=== PATIENT | female | born 2000 | race Caucasian/White ===

== ENCOUNTER 2019-11-08 12:54 | Emergency (ER) | payer OTHER, SELFPAY ==
[2019-11-08 13:04] VITALS: BP 140/79; PULSE 72; RESP 18; TEMP 36.6; O2SAT 100
--- NOTE | 2019-11-08 14:15 | ED.ALLEREA ---
HPI - Allergic Reaction General Chief complaint: Allergic Reaction Stated complaint: allergic reaction Time Seen by Provider: 11/08/19 13:05 Source: patient Mode of arrival: ambulatory Limitations: no limitations History of Present Illness HPI narrative: Patient is a 19-year-old female who presents to emergency department for evaluation of facial rash patient is unsure as to the etiology denies similar occurrence in the past denies any new exposures or contacts took Benadryl with minimal improvement notes itching of the face where the rash is located also noting some itching of the torso. Related Data Allergies Allergy/AdvReac Type Severity Reaction Status Date / Time No Known Allergies Allergy Verified 11/08/19 13:16 Review of Systems Review of Systems: All systems reviewed & are unremarkable except as noted in HPI and below PMFSH Social History Social History Gender identity (if verbalized by the patient): Female Exam Narrative: Exam Narrative: GENERAL: Well-appearing, well-nourished, and in no acute distress. HEAD: Normocephalic, atraumatic. EYES: PERRLA and EOMI. ENT: Nares clear, no rhinorrhea or epistaxis. Mucous membranes moist. Oropharynx without tonsillar hypertrophy exudate or other lesions. no angioedema in the oropharynx NECK: Supple. No adenopathy or masses. No stridor CHEST: Clear to auscultation. No respiratory distress. No wheezes rales or rhonchi HEART: Regular rate and rhythm. No murmur heard. EXTREMITIES: Normal range of motion. No edema. SKIN: Warm, dry, facial rash with splotchy urticaria no other angioedema or urticaria noted NEURO: No focal deficits. Alert and oriented x3. PSYCH: Normal mood and affect. Course Course Emergency Course: Patient in the room aware of case findings treatment plan and diagnosis agreeing to follow-up as directed or to return if symptoms worsen or concerns Vital Signs Vital signs: Vital Signs Temperature 97.8 F 11/08/19 13:04 Pulse Rate 72 11/08/19 13:04 Respiratory Rate 18 11/08/19 13:04 Blood Pressure 140/79 11/08/19 13:04 Pulse Oximetry 100 11/08/19 13:04 Temperature 97.8 F 11/08/19 13:04 Pulse Rate 72 11/08/19 13:04 Respiratory Rate 18 11/08/19 13:04 Blood Pressure 140/79 11/08/19 13:04 Pulse Oximetry 100 11/08/19 13:04 MDM - Allergic Reaction MDM Narrative Medical decision making narrative: Patient in the room with allergic reaction may be due to the new mask that the patient has been wearing is been advised to remove the mass will be treated for allergic reaction and referred to primary care and given reasons to return Discharge Plan Discharge Clinical Impression: Urticaria Patient Disposition: Home, Self-Care Condition: Stable Instructions: Antibiotic Form, Urticaria (ED) Additional Instructions: Follow-up with primary care in the next 3 to 5 days to set up for reevaluation. go to ER for, nausea/vomiting, fever/chills, weakness, chest pain, shortness of breath, numbness/tingling, slurred speech, change in mental status, unable to swallow or open the mouth, tongue swelling etc. or any other concerns. Avoid heat Take any prescribed medications as directed. Prescriptions: New famotidine [Pepcid] 20 mg tablet 20 mg PO BID Qty: 30 RF: 0 loratadine [Claritin] 10 mg tablet 10 mg PO DAILY PRN (Reason: allergy symptoms) Qty: 14 RF: 0 Follow-up/Referrals: Sean Tang MD [Physician] - PHYSICIAN,TELLER COORDINATOR [Primary Care Provider] -
[2019-11-08] MEDS: FAMOTIDINE 20 MG TABLET PO (14:24)
[2019-11-08] MEDS: predniSONE 20 MG TABLET 60 MG PO (14:24)
== END 2019-11-08 14:32 | disposition home or self-care (01) ==
PROVIDERS: Emergency Provider Emergency Medicine
DX: L50.9 Urticaria, unspecified (principal)
CPT/HCPCS: 99283; A9270; J7512

== ENCOUNTER 2020-03-07 09:49 | Emergency (ER) | payer OTHER, SELFPAY ==
[2020-03-07 10:09] VITALS: BP 131/73; PULSE 80; RESP 18; TEMP 36.3; O2SAT 98
--- NOTE | 2020-03-07 12:30 | ED.GENADULT ---
HPI - General Adult General Chief complaint: Unspecified Stated complaint: pill stuck in throat Time Seen by Provider: 03/07/20 11:17 Source: patient Mode of arrival: ambulatory Limitations: no limitations History of Present Illness HPI narrative: Patient is a 19-year-old female who swallowed a vitamin C pill today and felt as though her stuck in her throat patient notes since having done this this morning her symptoms improved considerably and she only has minimal discomfort at this time notes that she may have been anxious at the time that the pill became stuck patient otherwise in the room in no distress resting comfortably patient denies URI symptoms or other complaints and presents in no distress Related Data Home Medications Medication Instructions Recorded Confirmed apple cider vinegar mg PO 03/07/20 ascorbic acid (vitamin C) [Vitamin 1 g PO Q6H 03/07/20 03/07/20 C] Allergies Allergy/AdvReac Type Severity Reaction Status Date / Time No Known Allergies Allergy Verified 03/07/20 10:12 Review of Systems Review of Systems: All systems reviewed & are unremarkable except as noted in HPI and below PMFSH Social History Social History Gender identity (if verbalized by the patient): Female Exam Narrative: Exam Narrative: GENERAL: Well-appearing, well-nourished, and in no acute distress. HEAD: Normocephalic, atraumatic. EYES: PERRLA and EOMI. ENT: Nares clear, no rhinorrhea or epistaxis. Mucous membranes moist. CHEST: Clear to auscultation. No respiratory distress. No wheezes rales or rhonchi HEART: Regular rate and rhythm. No murmur heard. SKIN: Warm, dry, no rash. NEURO: No focal deficits. Alert and oriented x3. PSYCH: Normal mood and affect. Course Course Emergency Course: Patient in the room no distress aware of case findings treatment plan and diagnosis Vital Signs Vital signs: Vital Signs Temperature 97.3 F L 03/07/20 10:09 Pulse Rate 80 03/07/20 10:09 Respiratory Rate 18 03/07/20 10:09 Blood Pressure 131/73 03/07/20 10:09 Pulse Oximetry 98 03/07/20 10:09 Temperature 97.3 F L 03/07/20 10:09 Pulse Rate 80 03/07/20 10:09 Respiratory Rate 18 03/07/20 10:09 Blood Pressure 131/73 03/07/20 10:09 Pulse Oximetry 98 03/07/20 10:09 Medical Decision Making MDM Narrative Medical decision making narrative: Patient tolerating p.o. intake in no distress will be referred back home advised to follow with ENT patient feels comfortable with this plan given the improvement in her symptoms patient with vital signs and ABCs intact and stable Vital Signs Vital Signs: Vital Signs Temperature 97.3 F L 03/07/20 10:09 Pulse Rate 80 03/07/20 10:09 Respiratory Rate 18 03/07/20 10:09 Blood Pressure 131/73 03/07/20 10:09 Pulse Oximetry 98 03/07/20 10:09 Temperature 97.3 F L 03/07/20 10:09 Pulse Rate 80 03/07/20 10:09 Respiratory Rate 18 03/07/20 10:09 Blood Pressure 131/73 03/07/20 10:09 Pulse Oximetry 98 03/07/20 10:09 Discharge Plan Discharge Clinical Impression: Pharyngitis Patient Disposition: Home, Self-Care Condition: Stable Instructions: Antibiotic Form, Esophageal Foreign Body (ED) Additional Instructions: Follow up with your primary care provider within 1-2 days. Go to ER for shortness of breath, difficulty breathing, chest pain, fever/chills, weakness, nauseau/vomitting, tongue swelling throat tightening or unable to swallow liquids or open the mouth etc. or any other concerns. Follow-up with ear nose and throat in the next 7 days Take any prescribed medications as directed. Stay well-hydrated If you do not have a drug allergy to tylenol or motrin and can tolerate it then take tylenol or motrin as needed for discomfort/pain. Prescriptions: No Action Vitamin C 1,000 mg Tablet,Chewable 1 g PO Q6H RF: 0 apple cider vinegar 500 mg Tablet PO
== END 2020-03-07 12:43 | disposition home or self-care (01) ==
PROVIDERS: Emergency Provider Emergency Medicine
DX: R07.0 Pain in throat (principal)
CPT/HCPCS: 99281

== ENCOUNTER 2020-04-13 17:54 | Emergency (ER) | payer OTHER, SELFPAY ==
--- NOTE | ~2020-04-13 | CT_ITS ---
EXAMINATION: CT facial bones wo [facility] EXAM DATE: 04/13/2020 19:03 INDICATION: Fall, injury, right jaw pain. TECHNIQUE: Spiral CT of the facial bones was acquired in the axial plane without contrast. Coronal reformatted images were also reviewed. The dose-length product (DLP) for this examination was 287.87 mGy-cm. The exposure was tailored according to patient size, and iterative reconstruction (ASIR) wa s used as additional dose reduction technique. There is no prior study for comparison. FINDINGS: There are no displaced acute nasal bone fractures. The mandible, sinuses and orbits are in tact. The orbits, globes and extraocular muscles are unremarkable. The visualized sinuses and mas toid air cells are well aerated. IMPRESSION: 1. No acute facial fracture. Reviewed, dictated and finalized at location A. [employer]
[2020-04-13 18:06] VITALS: BP 140/89; PULSE 114; RESP 20; TEMP 36.5; O2SAT 99
--- NOTE | 2020-04-13 18:43 | ED.FALL ---
HPI - Fall General Chief Complaint: Fall Stated Complaint: fall, facial pain Time Seen by Provider: 04/13/20 18:00 Source: patient Mode of arrival: ambulatory Limitations: no limitations History of Present Illness HPI Narrative: This is a 19 year old female that presents to the ER for jaw pain after an injury today. Reports she slipped and fell. Reports falling forward and hitting her jaw on the ground. Denies other injuries, loss of consciousness, vision changes, vomiting, numbness, or weakness. Related Data Home Medications Medication Instructions Recorded Confirmed No Home Medications 04/13/20 04/13/20 Allergies Allergy/AdvReac Type Severity Reaction Status Date / Time No Known Allergies Allergy Verified 04/13/20 18:10 Review of Systems Review of Systems: Narrative: CONSTITUTIONAL: Denies fever EYES: Denies visual changes GASTROINTESTINAL: Denies vomiting MUSCULOSKELETAL: Reports joint pain, and myalgia. NEUROLOGIC: Denies headache, numbness, or weakness. All systems reviewed & are unremarkable except as noted in HPI and below PMFSH Surgical History Surgical History (Updated 04/13/20 @ 20:21 by Daisy Schmidt PA-C) History of myringotomy Social History Social History (Updated 04/13/20 @ 20:22 by Daisy Schmidt PA-C) Smoking status: Never smoker Gender identity (if verbalized by the patient): Female Exam Narrative: Exam Narrative: GENERAL: Well-appearing, well-nourished, and in no acute distress. HEAD: Normocephalic, atraumatic. EYES: PERRLA and EOMI. ENT: Nares clear, no rhinorrhea or epistaxis. Mucous membranes moist. Oropharynx without tonsillar hypertrophy exudate or other lesions. Bilateral TMs pearly thorne non-bulging NECK: Supple. No adenopathy or masses. No midline cervical spine tenderness CHEST: Clear to auscultation. No respiratory distress. No wheezes rales or rhonchi HEART: Regular rate and rhythm. No murmur heard. Normal peripheral pulses. EXTREMITIES: Normal range of motion. No edema. Strength equal in bilateral upper extremities (5/5) SKIN: Warm, dry, no rash. NEURO: No focal deficits. Alert and oriented x3. Cranial nerves II through XII grossly intact PSYCH: Normal mood and affect Course Vital Signs Vital signs: Vital Signs Temperature 97.7 F 04/13/20 18:06 Pulse Rate 114 H 04/13/20 18:06 Respiratory Rate 20 04/13/20 18:06 Blood Pressure 140/89 04/13/20 18:06 Pulse Oximetry 99 04/13/20 18:06 Temperature 97.7 F 04/13/20 18:06 Pulse Rate 114 H 04/13/20 18:06 Respiratory Rate 20 04/13/20 18:06 Blood Pressure 140/89 04/13/20 18:06 Pulse Oximetry 99 04/13/20 18:06 MDM - Fall MDM Narrative Medical decision making narrative: Patient presents to the emergency department for facial injury after a fall today. She is neurologically intact. CT scan of the facial bones is without acute fractures. She was updated on case findings. Was instructed to rest, ice and take [id number] pain medication as needed. She is to follow-up with primary care doctor. She was given warnings to return to the ER Imaging Data Radiologist's impression: ITS Impressions Face CT 04/13/20 19:05 IMPRESSION: 1. No acute facial fracture. Critical Care Time Critical Care Time Critical Care Time: No Discharge Plan Discharge Clinical Impression: Contusion of jaw Qualifiers: Encounter type: initial encounter Qualified Code(s): S00.83XA - Contusion of other part of head, initial encounter Patient Disposition: Home, Self-Care Condition: Stable Instructions: Contusion in Adults (ED) Additional Instructions: Return to the emergency department if you experience fever, vision changes, vomiting, sudden onset numbness or weakness, or any other symptoms that are concerning to you Rest. Ice to the area. Tylenol or ibuprofen as needed for pain Follow-up with primary care doctor Prescriptions: No Action No Home Medicati
[2020-04-13] MEDS: ACETAMINOPHEN 500 MG TABLET 1000 MG PO (19:35)
[2020-04-13 20:40] VITALS: BP 137/89; PULSE 105; RESP 20; O2SAT 99
== END 2020-04-13 20:42 | disposition home or self-care (01) ==
PROVIDERS: Emergency Provider Emergency Medicine
DX: S00.83XA Contusion of other part of head, initial encounter (principal); W01.0XXA Fall on same level from slipping, tripping and stumbling without subsequent striking against object, initial encounter
CPT/HCPCS: 70486; 99284; A9270